=== PATIENT | male | born 1945 ===

== ENCOUNTER 2018-06-25 08:15 | Inpatient (IN) | payer MEDICARE, MEDICAID ==
[2018-06-25] VITALS (11 sets, daily range): BP systolic 95–117; BP diastolic 48–72
[~2018-06-25] VITALS: Ht 172.7 cm; Wt 81.6 kg
[~2018-06-25 08:15] MED LIST: ceFAZolin 1gm IVPB IVPB ONE; celeBREX 200mg Cap **SURGERY PATIENTS ONLY ORAL ONE; oxyCONTIN 20mg tab ORAL ONE
[2018-06-25] MEDS ORDERED: celeBREX 200mg Cap **SURGERY PATIENTS ONLY ORAL ONE (16:15)
[2018-06-25] MEDS ORDERED: oxyCONTIN 20mg tab ORAL ONE (16:15)
--- NOTE | 2018-06-25 16:31 | Pre-Procedure Note/Attestation ---
Pre-Procedure Note/Attestation Complete Prior to Procedure Planned Procedure: left Procedure Narrative: tka Indications for Procedure Pre-Operative Diagnosis: left knee arthritis Attestation I attest that I discussed the nature of the procedure; its benefits; risks and complications; and alternatives (and the risks and benefits of such alternatives ), prior to the procedure, with the patient (or the patient's legal customer retention representative). I attest that, if there was a reasonable possibility of needing a blood transfusion, the patient (or the patient's legal customer retention representative) was given the [facility] standardized written summary, pursuant to the [place] Reform Blood Safety Act ([place] Health and Safety Code # 1645, as amended). I attest that I re-evaluated the patient just prior to the surgery and that there has been no change in the patient's H&P, except as documented below: Prosper Owusu MD Jun 25, 2018 16:31
--- NOTE | 2018-06-25 16:32 | Operative Note - PDOC ---
Operative Note Operative Note Pre-op Diagnosis: left knee arthritis Procedure: see op report Post-op Diagnosis: same as pre-op plus Operative Findings: consistent w/pre-op dx studies Anesthesia: regional Specimen: none Complications: none Condition: stable Estimated Blood Loss: none Implant(s) used?: Yes Prosper Owusu MD Jun 25, 2018 16:32
[2018-06-25] MEDS ORDERED: EPINEPHrine 1mg/1ml Amp ONE ×2 (16:44→18:39)
[2018-06-25] MEDS ORDERED: Morphine Sulfate PF 10 ML ONE (16:44)
[2018-06-25] MEDS ORDERED: Kenalog-10 5ml Inj ONE (16:45)
[2018-06-25] MEDS ORDERED: Bupivacaine 0.25% Inj 30ml INJ ONE (16:45)
[2018-06-25] MEDS ORDERED: Ketorolac 30mg Inj ONE (16:45)
[2018-06-25] MEDS ORDERED: NeoSporin Gu Irrig 1ml Amp IRRIG ONE (16:45)
[2018-06-25] MEDS ORDERED: oxyCODONE 5mg IR tab ORAL PRN (16:45)
[2018-06-25] MEDS ORDERED: Bacitracin 50000 Units Vial ONE (16:45)
[2018-06-25] MEDS ORDERED: Morphine Sulfate 2mg/ml Inj(IV/IM USE ONLY) IVP PRN (16:45)
[2018-06-25] MEDS ORDERED: Milk of Magnesia 30ml Ud ORAL PRN (16:45)
[2018-06-25] MEDS ORDERED: GABAPENTIN600 MG ORAL (16:52)
[2018-06-25] MEDS ORDERED: METOPROLOL SUCC25 MG ORAL (16:53)
[2018-06-25] MEDS ORDERED: amlodipine PO (16:54)
[2018-06-25] MEDS ORDERED: TRAMADOL HCL50 MG ORAL (16:54)
[2018-06-25] MEDS ORDERED: TYLENOL EXTRA500 MG ORAL (16:55)
[2018-06-25] MEDS ORDERED: Sterile Water Irrig 1000ml IRRIG ONE (18:00)
[2018-06-25] MEDS ORDERED: NS Irrig 1000ml ONE (18:00)
[2018-06-25] MEDS ORDERED: NS Irrig 2000ml IRRIG ONE (18:00)
[2018-06-25] MEDS ORDERED: LR 1000ml ONE (18:00)
[2018-06-25] MEDS ORDERED: Tranexamic Acid 1,000 MG in NS 55 ML IV ONE ×2 (18:15→19:00)
[2018-06-25] MEDS ORDERED: Bupivacaine 0.5% Inj 30 ml vial INJ ONE (18:31)
[2018-06-25] MEDS ORDERED: cloNIDine 1000mcg/10ml inj ONE (18:31)
[2018-06-25] MEDS ORDERED: Lidocaine 1% MPF 10mg/ml 5ml ONE (18:39)
[2018-06-25] MEDS ORDERED: Propofol 200mg/20ml IV ONE (18:39)
[2018-06-25] MEDS ORDERED: Sodium Chloride 10ml vial INJ ONE (18:39)
[2018-06-25] MEDS ORDERED: Dexamethasone 4mg/ml vial ONE (18:39)
[2018-06-25] MEDS ORDERED: Duramorph PF 10mg/10ml amp EPIDUR ONE (18:51)
[2018-06-25] MEDS ORDERED: LR 1000ml 1,000 ML IVLG SCH (19:20)
--- NOTE | 2018-06-25 19:27 | Anethesia Preoperative Eval ---
Anesthesia Pre-op PMH/ROS General Date of Evaluation: Jun 25, 2018 Anesthesiologist: Giuseppe ASA Score: ASA 3 Mallampati Score Class I : Soft palate, uvula, fauces, pillars visible Class II: Soft palate, uvula, fauces visible Class III: Soft palate, base of uvula visible Class IV: Only hard plate visible Mallampati Classification: Class II Surgeon: Umer Anesthesia History: none Family History: no anesthesia problems Allergies: Coded Allergies: No Known Allergies (Unverified , 06/24/18) Medications: see eMAR Patient NPO?: Yes NPO Date: Jun 25, 2018 NPO Time: 0600 Past Medical History Cardiovascular: Reports: HTN Neurologic/Psychiatric: Reports: CVA PSxH Narrative: R THR Anesthesia Pre-op Phys. Exam Physician Exam Last Vital Signs Date Time Temp Pulse Resp B/P (MAP) Pulse Ox O2 Delivery O2 Flow Rate FiO2 06/25/18 17:11 Room Air 06/25/18 17:06 97.2 53 18 112/72 (85) 97 Constitutional: NAD Neurologic: CN 2-12 intact Cardiovascular: RRR Respiratory: CTA Gastrointestinal: S/NT/ND Airway Exam Mallampati Score: Class II MO: full ROM: full Teeth: missing, intact Anesthesia Pre-op A/P Risk Assessment & Plan Assessment: ASA 3 Plan: Spinal, SED Status Change Before Surgery: No Pre-Antibiotics Dru Grams Ancef IV Given Within 1 Hr of Incision: Yes - 1855 Time Given: 18:56 Shawn Chin MD Jun 25, 2018 19:27
--- NOTE | 2018-06-25 19:28 | Immediate Post-Op Evaluation ---
Immediate Post-Op Evalulation Immediate Post-Op Evalulation Procedure: L Total Hip Arthroplasty Date of Evaluation: Jun 25, 2018 Time of Evaluation: 20:58 IV Fluids: 1400 LR Blood Products: 0 Estimated Blood Loss: 52 Urinary Output: 0 Blood Pressure Systolic: 117 Blood Pressure Diastolic: 61 Pulse Rate: 67 Respiratory Rate: 16 O2 Sat by Pulse Oximetry: 100 Temperature (Fahrenheit): 98 Pain Score (1-10): 2 Nausea: No Vomiting: No Complications 0 Patient Status: awake, reacts, patent, none Hydration Status: adequate Dru Grams Ancef IV Given Within 1 Hr of Incision: Yes Time Given: 18:56 Shawn Chin MD Jun 25, 2018 19:28
[2018-06-25] MEDS ORDERED: Metoclopramide 10mg/2ml Inj IVP PRN (19:30)
[2018-06-25] MEDS ORDERED: HYDROcodone/Acetamin 5/325 tab ORAL PRN (19:30)
[2018-06-25] MEDS ORDERED: Atropine Sulfate 0.4mg/ml inj IVP PRN (19:30)
[2018-06-25] MEDS ORDERED: oxyCODONE HCL/Acetaminophen 5/325mg ORAL PRN (19:30)
[2018-06-25] MEDS ORDERED: DiphenhydrAMINE 50mg/ml Inj IVP PRN (19:30)
[2018-06-25] MEDS ORDERED: LORazepam Inj 2mg/ml 1ml IV PRN (19:30)
[2018-06-25] MEDS ORDERED: fentaNYL 100 mcg/2 mL IV PRN (19:30)
[2018-06-25] MEDS ORDERED: Meperidine 50mg/ml Inj(FOR RIGORS ONLY) IVP PRN (19:30)
[2018-06-25] MEDS ORDERED: Hydromorphone 0.5mg/0.5ml inj IVP PRN (19:30)
[2018-06-25] MEDS ORDERED: HYDROcodone/Acetamin 7.5/325 tab ORAL PRN (19:30)
[2018-06-25] MEDS ORDERED: Midazolam 2mg/2ml Inj IVP PRN (19:30)
[2018-06-25] MEDS ORDERED: Labetalol 5mg/ml 20ml vial IV PRN (19:30)
--- NOTE | 2018-06-25 22:10 | NUR ---
NURSE NOTES: Patient received from PACU, drowsy, arousable. On o2 via NC, no acute cardiorespiratory distress noted at this time. Chang catheter draining via gravity, secured to thigh. L knee dressing intact. IV intact and patent. Call light within reach. Oriented to new room and unit. Denies pain at this time. Will continue plan of care.
[2018-06-25] MEDS ORDERED: NORCO 10-325 T1 EACH ORAL (22:22)
[2018-06-25] MEDS ORDERED: VIAGRA50 MG ORAL (22:32)
[2018-06-25] MEDS ORDERED: MELOXICAM7.5 MG PO (22:32)
[2018-06-25] MEDS ORDERED: VITAMIN D250000 UNI1 ORAL (22:32)
[2018-06-25] MEDS ORDERED: GABAPENTIN300 MG ORAL (22:33)
[2018-06-25] MEDS: D5 1/2NS w/KCl 20mEq 1,000 ML IV SCH (22:59)
--- NOTE | 2018-06-26 00:05 | NUR ---
NURSE NOTES: Patient tolerating PO liquid diet at this time. Also tolerating crackers. No N/V
--- NOTE | 2018-06-26 02:45 | Operative Note - Dictated ---
DATE OF OPERATION: 06/25/2018 PREOPERATIVE DIAGNOSIS: Left knee osteoarthritis. POSTOPERATIVE DIAGNOSIS: Left knee osteoarthritis. PROCEDURE: Left total knee arthroplasty. SURGEON: Prosper Owusu M.D. ANESTHESIA: Spinal general. INDICATION FOR PROCEDURE: The patient is a pleasant gentleman who has had progressive left knee and end-stage osteoarthritis, had difficulty ambulating and elected to undergo left total knee arthroplasty. The risks, limitations, expectations, and complications of the procedure were discussed in detail. All questions addressed. DESCRIPTION OF PROCEDURE: After informed consent was obtained, the patient was brought to the operating room and placed under spinal general anesthesia. Left leg was prepped and draped in a sterile manner. Time-out was performed. Ancef was administered. Tranexamic acid was administered. A standard anterior subvastus arthrotomy was performed. Distal femur was well visualized. Distal femoral cutting block was placed. Distal femur was resected. Posterior anterior sizing guide was placed and measured between 4 or 5 and 5 was selected. Size 4 in 1 size 5 cutting block was placed. The anterior and posterior chamfer cuts were then made. There was slight hypoplastic femoral condyle. Therefore, care was taken to rotate the component. The proximal tibia was well visualized. There is significant posterior lateral bone loss. A tibial resection was then made. A size 4 tibial insert with a 11 mm insert was selected and placed. Knee came out to full extension, good stability with full extension, 10 degrees of flexion, 90 degrees of flexion. Good tracking of the patella. The patella was everted. A 31 mm patellar component was selected and placed. We calibrated 24 mm. At this point, a cement was prepared. Implants were impacted into place. Excess cement was removed. Arthrotomy site was closed with #1 Vicryl suture, 2-0 Vicryl suture, and 3-0 Monocryl suture and Dermabond. The patient was awoken and taken to the recovery room with stable vital signs. ESTIMATED BLOOD LOSS: Minimal. COMPLICATIONS: None. SPECIMENS: None. IMPLANTS: Include size 5 femoral component, size 4 tibial base plate, size 11 mm tibial insert, and 31 mm patellar component. Prosepr Owusu M.D. DR: BERNADETTE JOB#: [id number] CC:
[2018-06-26 03:16] VITALS: BP 130/65
[2018-06-26] MEDS: ceFAZolin 2gm/50ml Premix 50 ML IV SCH ×2 (03:22→11:42)
[2018-06-26] MEDS: Morphine Sulfate 4mg/ml Inj (IV USE ONLY) IVP PRN ×2 (03:29→11:57)
--- NOTE | 2018-06-26 06:06 | NUR ---
NURSE NOTES: Patient pain not improved after morphine and roxicodone. Patient stated he can tolerate it because he does not want to be delirious from overmedication. Ice pack replaced on patient's knee for comfort. Patient also experiencing itching on his left knee. Dr. Clements made aware, received order for claritin.
--- NOTE | 2018-06-26 07:52 | NUR ---
HAND-OFF: Report given to Joellen STANTON.
--- NOTE | 2018-06-26 07:55 | NUR ---
NURSE NOTES: Report received from outgoing nurse, rounds made. Patient resting in semi-fowlers position in bed. Patient alert, oriented x4, calm. No SOB on RA. Pain 7/10, will medicate as ordered. Denies NV. Encouraged PO intake. IVF infusing to right hand as ordered. FC draining y/cl urine to gravity. Neuro checks done, CMS+, mild numbness to base of feet, skin warm, wiggles, capillary refill <3 seconds, pedal pulses palpable, hand grasps/pedal pushes equal and strong. Left knee dressing (sourav wrap) in place, CDI. Right SCD on. Encouraged CDB and ankle rotations. Bed in lowest position, call light in reach, will continue to monitor.
[2018-06-26 08:00] VITALS: BP 117/62
[2018-06-26 08:47] LABS: HEMATOCRIT 44.4 % (42.0-52.0); HEMOGLOBIN 14.7 G/DL (14.2-18.0); MEAN CORPUSCULAR VOLUME 87 FL (80-99); PLATELET COUNT 311 K/UL (150-450); RED BLOOD COUNT 5.07 M/UL (4.70-6.10); RED CELL DISTRIBUTION WIDTH 12.4 % (11.6-14.8); WHITE BLOOD COUNT 18.5 K/UL (4.8-10.8)
[2018-06-26] MEDS: oxyCONTIN 20mg tab ORAL SCH ×2 (09:13→20:59)
[2018-06-26] MEDS: Docusate 100mg cap ORAL SCH ×3 (09:13→17:44)
[2018-06-26] MEDS: Acetaminophen 500mg (ES) tab ORAL SCH ×3 (09:15→17:45)
[2018-06-26] MEDS: Metoprolol Succinate XL 25mg tab ORAL SCH (09:15)
[2018-06-26] MEDS: celeBREX 200mg Cap **SURGERY PATIENTS ONLY ORAL SCH (09:20)
[2018-06-26] MEDS: D5 1/2NS w/KCl 20mEq 1,000 ML IV SCH (11:44)
--- NOTE | 2018-06-26 11:47 | Consultation ---
History of Present Illness Present Illness Allergies: Coded Allergies: No Known Allergies (Unverified , 06/24/18) Medication History Scheduled Ergocalciferol (Vitamin D2)* (Vitamin D*), 50,000 UNIT ORAL ONCE A WEEK, ( Reported) Gabapentin* (Gabapentin*), 300 MG ORAL THREE TIMES A DAY, (Reported) Meloxicam* (Meloxicam*), Unknown Dose PO DAILY, (Reported) Metoprolol Succinate* (Metoprolol Succinate*), 25 MG ORAL DAILY, (Reported) Sildenafil Citrate (Viagra), 50 MG ORAL DAILY, (Reported) [amlodipine], 1 TAB-CAP PO DAILY, (Reported) Scheduled PRN Acetaminophen* (Tylenol Extra Strength*), 500 MG ORAL Q6H PRN for Mild Pain/ Temp > 100.5, (Reported) Hydrocodone Bit/Acetaminophen 10-325* ([place] 10-325*), 1 TAB ORAL Q6H PRN for For Pain, (Reported) Tramadol Hcl* (Ultram*), 50 MG ORAL Q6H PRN for For Pain, (Reported) Discontinued Medications Gabapentin* (Gabapentin*), 600 MG ORAL THREE TIMES A DAY, (Reported) Discontinued Reason: Medication dose changed Patient History Healthcare decision maker N Resuscitation status Full Code Advanced Directive on File No Physical Exam Last 24 Hour Vital Signs Date Time Temp Pulse Resp B/P (MAP) Pulse Ox O2 Delivery O2 Flow Rate FiO2 06/26/18 11:22 73 18 Room Air 21 06/26/18 09:15 77 117/62 06/26/18 09:15 77 117/62 06/26/18 08:00 98.2 77 19 117/62 (80) 97 06/26/18 03:59 97.2 06/26/18 03:16 97.2 87 17 130/65 (86) 97 06/25/18 23:52 97.5 59 17 102/60 (74) 99 06/25/18 23:04 97.5 60 17 108/55 (72) 98 06/25/18 22:35 Nasal Cannula 2.0 06/25/18 22:10 97.2 61 17 105/61 (76) 98 06/25/18 21:39 98.4 63 15 102/52 98 Nasal Cannula 3 06/25/18 21:30 60 16 106/48 98 Nasal Cannula 3 06/25/18 21:15 61 17 106/54 98 Nasal Cannula 3 06/25/18 21:05 60 18 112/58 95 Nasal Cannula 3 06/25/18 20:57 65 24 115/62 95 Simple Mask 6 06/25/18 20:52 66 22 95/52 95 Simple Mask 6 06/25/18 20:47 98.0 70 14 117/61 98 Simple Mask 6 06/25/18 20:44 67 16 100 06/25/18 17:11 Room Air 06/25/18 17:06 97.2 53 18 112/72 (85) 97 Intake and Output 06/25/18 06/26/18 19:00 07:00 Intake Total 0 ml 3480 ml Output Total 950 ml Balance 0 ml 2530 ml Intake Oral 0 ml 950 ml IV Total 2530 ml Output Urine Total 930 ml Estimated Blood Loss 20 ml # Voids 1 Laboratory Tests Test 06/26/18 08:18 White Blood Count 18.5 K/UL (4.8-10.8) H Red Blood Count 5.07 M/UL (4.70-6.10) Hemoglobin 14.7 G/DL (14.2-18.0) Hematocrit 44.4 % (42.0-52.0) Mean Corpuscular Volume 87 FL (80-99) Mean Corpuscular Hemoglobin 29.0 PG (27.0-31.0) Mean Corpuscular Hemoglobin Concent 33.1 G/DL (32.0-36.0) Red Cell Distribution Width 12.4 % (11.6-14.8) Platelet Count 311 K/UL (150-450) Mean Platelet Volume 5.9 FL (6.5-10.1) L Neutrophils (%) (Auto) % (45.0-75.0) Lymphocytes (%) (Auto) % (20.0-45.0) Monocytes (%) (Auto) % (1.0-10.0) Eosinophils (%) (Auto) % (0.0-3.0) Basophils (%) (Auto) % (0.0-2.0) Differential Total Cells Counted 100 Neutrophils % (Manual) 96 % (45-75) H Lymphocytes % (Manual) 2 % (20-45) L Monocytes % (Manual) 2 % (1-10) Eosinophils % (Manual) 0 % (0-3) Basophils % (Manual) 0 % (0-2) Band Neutrophils 0 % (0-8) Platelet Estimate Adequate Platelet Morphology Normal Red Blood Cell Morphology Normal Height (Feet): 5 Height (Inches): 8.00 Weight (Pounds): 180 Medications Current Medications Medications (Trade) Dose Ordered Sig/Walter Route PRN Reason Start Time Stop Time Status Last Admin Dose Admin Acetaminophen (Tylenol) 1,000 mg THREE TIMES A DAY ORAL 06/26/18 09:00 07/26/18 08:59 06/26/18 09:15 Amlodipine Besylate (Norvasc) 2.5 mg DAILY ORAL 06/26/18 09:00 07/26/18 08:59 06/26/18 09:15 Celecoxib (CeleBREX) 200 mg DAILY ORAL 06/26/18 09:00 07/26/18 08:59 06/26/18 09:20 Dextrose/ Electrolytes 1,000 ml @ 75 mls/hr [id number] IV 06/25/18 23:00 07/25/18 22:59 06/26/18 11:44 Docusate Sodium (Colace) 100 mg THREE TIMES A DAY ORAL 06/26/18 09:00 07/26/18 08:59 06/26/18 09:13 Ferrous Sulfate (Feosol) 325 mg THREE TIMES A DAY ORAL 06/26/18 09:00 07/26/18 08:59 06/26/18 09:15 Gabapentin (Neurontin) 300 mg THREE TIMES A DAY ORAL 06/26/18 09:00 07/26/18 08:59 06/26/18 09:11 Loratadine (Claritin 10mg) 10 mg DAILY PRN ORAL Itching 06/26/18 06:15 07/26/18 06:14 06/26/18 06:15 Magnesium Hydroxide (Mom) 30 ml DAILYPRN PRN ORAL Constipation 06/25/18 16:45 07/25/18 16:44 Metoprolol Succinate (Toprol XL) 25 mg DAILY ORAL 06/26/18 09:00 07/26/18 08:59 06/26/18 09:15 Morphine Sulfate (Morphine Sulfate) 1 mg Q4H PRN IVP Mild Pain (Pain Scale 1-3) 06/25/18 16:45 07/02/18 16:44 Morphine Sulfate (Morphine Sulfate) 2 mg Q4H PRN IVP Moderate Pain (Pain Scale 4-6) 06/25/18 16:45 07/02/18 16:44 Morphine Sulfate (Morphine Sulfate) 4 mg Q4H PRN IVP Severe Pain (Pain Scale 7-10) 06/25/18 16:45 07/02/18 16:44 06/26/18 03:29 Ondansetron HCl (Zofran) 4 mg Q6H PRN IVP Nausea & Vomiting 06/25/18 16:45 07/25/18 16:44 Oxycodone HCl (OxyCONTIN) 20 mg EVERY 12 HOURS ORAL 06/26/18 09:00 07/03/18 08:59 06/26/18 09:13 Oxycodone HCl (Roxicodone) 5 mg Q1H PRN ORAL Breakthrough Pain 06/25/18 16:45 07/02/18 16:44 06/26/18 04:37 Temazepam (Restoril) 7.5 mg HSPRN PRN ORAL Insomnia 06/25/18 16:45 07/02/18 16:44 Assessment/Plan Status Narrative h and p dictated s/p tkr pt ot dvt prophyalxis monitor cbc stress leukocytosis Lane Clements MD Jun 26, 2018 11:47
[2018-06-26 12:00] VITALS: BP 123/59
--- NOTE | 2018-06-26 13:16 | NUR ---
CASE MANAGEMENT: REVIEW 72/M DIRECT ADMIT FROM HOME CC: LEFT KNEE ARTHRITIS SI: LEFT KNEE OSTEOARTHRITIS LEFT TOTAL KNEE ARTHROPLASTY 06/25 T 97.2 HR 53 RR 18 BP 112/72 SAT 97% ROOM AIR IS: CELEBREX PO QD OXYCONTIN PO X1 CEFAZOLIN IV X1 EPINEPHRINE X1 NEOSPORIN X1 PATIENT ADMITTED TO MED/SURG UNIT 06/25/2018 DCP: PATIENT IS FROM HOME
--- NOTE | 2018-06-26 13:45 | NUR ---
NURSE NOTES: Dr. Owusu discussed discharge plans with patient/RN. Discharge with home health and DME (shower chair, walker, toilet seat). Smita Enrique CM notified of above. See order.
--- NOTE | 2018-06-26 15:46 | NUR ---
CASE MANAGEMENT: DCPNOTE PER MD ORDER HH AND DME ORDERED UPON DISCHARGE DOCTOR'S CHOICE ROBINA [phone] S/P KELLY [phone] WILL PROVIDE HH AND DELIVER DME (FWW, SHOWER CHAIR, RAISED TOILET SEAT)
[2018-06-26 16:00] VITALS: BP 126/67
--- NOTE | 2018-06-26 17:00 | NUR ---
PT Note PT fredy completed, tx initiated. Patient is cooperative and was able to ambulate with the FWW. Pt needs PT services to increase his ROM and muscle strength to improve his functional mobility and gait. Addendum: 06/26/18 at 1700 by MARIA ESTHER RAINES PT Amended: Links added.
--- NOTE | 2018-06-26 19:45 | NUR ---
HAND-OFF: Report given to Celeste STANTON.
[2018-06-26 20:00] VITALS: BP 132/85
--- NOTE | 2018-06-26 20:30 | NUR ---
NURSE NOTES: PATIENT IN BED, AWAKE, ALERT, VERBALLY RESPONSIVE. NO COMPLAINTS OF PAIN AT THIS TIME. NO S/S RESPIRATORY DISTRESS NOTED. IV IN PLACE. DRESSING IN LEFT KNEE DRY AND INTACT. BED IN LOWEST POSITION, CALL LIGHT WITHIN REACH, BED ALARM ON. WILL CONTINUE TO MONITOR.
--- NOTE | 2018-06-26 21:00 | History and Physical Report ---
DATE OF ADMISSION: 06/25/2018 NOTE: "POOR AUDIO QUALITY" REASON FOR EVALUATION: I was asked to evaluate this patient by Dr. Prosper Owusu. HISTORY OF PRESENT ILLNESS: This is a 72-year-old male with history of arthritis of the knee. He is status post total knee arthroplasty. Denies any chest pain, chest tightness, paroxysmal nocturnal dyspnea, or orthopnea. Denies any cough, hemoptysis, or hematemesis. PAST MEDICAL HISTORY: Includes: 1. Hypertension. 2. Osteoarthritis. 3. Hip arthritis. 4. History of gastritis. 5. History of unknown significance. MEDICATIONS: Prior to admission include: 1. Meloxicam. 2. Gabapentin 300. 3. Metoprolol. 4. Amlodipine. 5. Tramadol. 6. Viagra. FAMILY HISTORY: Noncontributory. SOCIAL HISTORY: Does not abuse drugs. PHYSICAL EXAMINATION: VITAL SIGNS: Reviewed. Pulse 73, respiratory rate 18. Last blood pressure we have on him is 117/62. GENERAL: A well-developed, well-nourished male in no acute distress. HEENT: Normocephalic and atraumatic. Extraocular muscles intact. Anicteric sclerae. NECK: No JVD. No carotid bruit. HEART: S1, S2. LUNGS: Clear. ABDOMEN: Soft. EXTREMITIES: No clubbing or cyanosis. The knee has a bandage on it. LABORATORY DATA: WBC noted to be 18.5, hematocrit is 44.4, and platelet is 311,000. IMPRESSION: This is an unfortunate male with history of arthritis, status post total knee arthroplasty. Perioperatively, minimum blood loss. History of hypertension. Postoperatively, stress leukocytosis. PLAN: The following is recommended. 1. I agree with current antibiotic perioperative prophylaxis. 2. Postoperatively, DVT prophylaxis. 3. Physical therapy. 4. Occupational therapy evaluation. 5. CPM. 6. Monitor CBC. The patient is doing well. We will follow with you during the course of hospitalization. Nereyda Rivas JOB#: [id number] CC: Prosper Owusu M.D.; Fax#: [phone] [facility]
[2018-06-27] VITALS (7 sets, daily range): BP systolic 102–142; BP diastolic 59–69
[2018-06-27] MEDS: D5 1/2NS w/KCl 20mEq 1,000 ML IV SCH ×2 (01:26→15:00)
--- NOTE | 2018-06-27 04:00 | NUR ---
NURSE NOTES: PATIENT IN BED, NO DISTRESS, V/S STABLE.
[2018-06-27 05:16] LABS: BASOPHILS % (AUTO) 0.5 % (0.0-2.0); HEMATOCRIT 44.3 % (42.0-52.0); HEMOGLOBIN 14.3 G/DL (14.2-18.0); LYMPHOCYTES % (AUTO) 6.2 % (20.0-45.0); MEAN CORPUSCULAR VOLUME 88 FL (80-99); MONOCYTES % (AUTO) 8.6 % (1.0-10.0); NEUTROPHILS % (AUTO) 84.7 % (45.0-75.0); PLATELET COUNT 288 K/UL (150-450); RED BLOOD COUNT 5.03 M/UL (4.70-6.10); RED CELL DISTRIBUTION WIDTH 12.7 % (11.6-14.8); WHITE BLOOD COUNT 16.9 K/UL (4.8-10.8)
--- NOTE | 2018-06-27 07:15 | NUR ---
NURSE NOTES: Report received from outgoing nurse, rounds made. Patient sitting in high fowlers position in bed. Patient alert, oriented x4, calm. Left knee dressing remains CDI, with sourav wrap. Patient refused ice pack at this time. Pain 5/10. Right hand IV infusing as ordered, site asymptomatic. No SOB on RA, no NV tolerating regular diet, encourage PO intake. Voiding y/cl urine, noted in urinal. Encouraged IS use. Call light in reach, bed in lowest position, will continue to monitor.
--- NOTE | 2018-06-27 07:30 | NUR ---
HAND-OFF: Report given to TASHA Mcintosh RN.
[2018-06-27] MEDS: Morphine Sulfate 2mg/ml Inj(IV/IM USE ONLY) IVP PRN (08:24)
[2018-06-27] MEDS: Acetaminophen 500mg (ES) tab ORAL SCH ×3 (08:42→17:37)
[2018-06-27] MEDS: oxyCONTIN 20mg tab ORAL SCH ×2 (08:44→21:43)
[2018-06-27] MEDS: celeBREX 200mg Cap **SURGERY PATIENTS ONLY ORAL SCH (08:44)
[2018-06-27] MEDS: Metoprolol Succinate XL 25mg tab ORAL SCH (08:45)
[2018-06-27] MEDS: Docusate 100mg cap ORAL SCH ×3 (08:45→17:36)
--- NOTE | 2018-06-27 13:00 | NUR ---
NURSE NOTES: Left knee dressing changed as ordered. Applied dry sterile dressing (4x4) secured with tegederm. Mild swelling noted to left knee, no bruising/redness/drainage. Assisted transfer to BSC. Reinforced proper body mechanics and alignment of left knee with movement. Patient verbalized understanding. CMS+, skin warm, pulses palapable, wiggles, no NT, capillary refill <3 seconds. Encouraged IS and ankle rotations. Noted right side slightly weaker with hand grasps and right foot deviation. RLE SCD on. Refused Colace. Instructed patient on medications and SE, encouraged Colace and PO diet/hydration. Voiding well per urinal y/cl. No NV. IVF discontinued this AM. VSS. Will continue to monitor.
--- NOTE | 2018-06-27 13:00 | 48 Hour Post Anesthesia Eval ---
Post Anesthesia Evaluation Procedure: L Total Hip Arthroplasty Date of Evaluation: Jun 27, 2018 Time of Evaluation: 12:59 Blood Pressure Systolic: 125 0: 75 Pulse Rate: 70 Respiratory Rate: 14 O2 Sat by Pulse Oximetry: 95 Airway: patent Nausea: No Vomiting: No Pain Intensity: 5 Hydration Status: adequate Cardiopulmonary Status: stable Mental Status/LOC: patient returned to baseline Follow-up Care/Observations: na Post-Anesthesia Complications: none Follow-up care needed: N/A Rena Brizuela CRNA Jun 27, 2018 13:00
--- NOTE | 2018-06-27 19:30 | NUR ---
NURSE NOTES: Report received, rounds made. Patient sleeping with HOB elevated in bed. Patient appears calm. Left knee dressing remains CDI, with sourav wrap. Right hand IV infusing as ordered, site asymptomatic. No SOB on RA, no NV tolerating regular diet, encourage PO intake. Voiding y/cl urine, noted in urinal. Encouraged IS use 10x while awake per hour. Call light in reach, bed in lowest position, locked. will continue to monitor.
--- NOTE | 2018-06-27 19:30 | NUR ---
HAND-OFF: Report given to Stacey Blackman RN.
--- NOTE | 2018-06-27 21:22 | General Progress Note ---
Assessment/Plan Status Narrative s/p tkr perioperative bloo dloss stress leukocytosis Assessment/Plan pt ot cpm paioncontrol dvt prophylaxis. Subjective Date patient seen: Jun 27, 2018 Time patient seen: 21:21 Allergies: Coded Allergies: No Known Allergies (Unverified , 06/24/18) Subjective has pain but better no fevernochills Objective Last 24 Hour Vital Signs Date Time Temp Pulse Resp B/P (MAP) Pulse Ox O2 Delivery O2 Flow Rate FiO2 06/27/18 16:00 97.9 103 18 127/69 (88) 99 06/27/18 13:00 70 14 95 06/27/18 12:00 97.9 79 19 102/59 (73) 98 06/27/18 09:00 Room Air 06/27/18 08:54 98.6 06/27/18 08:54 98.6 06/27/18 08:45 71 125/61 06/27/18 08:43 71 125/61 06/27/18 08:00 98.6 71 19 125/61 (82) 97 06/27/18 04:58 97.6 62 19 127/64 (85) 96 06/27/18 00:42 98.1 68 19 109/62 (78) 94 Intake and Output 06/26/18 06/27/18 18:59 06:59 Intake Total 1305 ml 1185 ml Output Total 200 ml 1300 ml Balance 1105 ml -115 ml Intake Oral 480 ml 360 ml IV Total 825 ml 825 ml Output Urine Total 200 ml 1300 ml # Voids 1 Laboratory Tests 06/27/18 04:55: White Blood Count 16.9H, Red Blood Count 5.03, Hemoglobin 14.3, Hematocrit 44.3 , Mean Corpuscular Volume 88, Mean Corpuscular Hemoglobin 28.5, Mean Corpuscular Hemoglobin Concent 32.3, Red Cell Distribution Width 12.7, Platelet Count 288, Mean Platelet Volume 6.3L, Neutrophils (%) (Auto) 84.7H, Lymphocytes (%) (Auto) 6.2L, Monocytes (%) (Auto) 8.6, Eosinophils (%) (Auto) 0.0, Basophils (%) (Auto) 0.5 Height (Feet): 5 Height (Inches): 8.00 Weight (Pounds): 180 General Appearance: WD/WN Neck: non-tender Cardiovascular: normal rate, regular rhythm, no JVD Respiratory/Chest: lungs clear Abdomen: non tender, soft Extremities: other - no clubbing Lane Clements MD Jun 27, 2018 21:22
[2018-06-28] VITALS: BP 132/71
[2018-06-28 04:00] VITALS: BP 132/66
[2018-06-28 06:35] LABS: EOSINOPHILS % (AUTO) 0.2 % (0.0-3.0); HEMATOCRIT 43.7 % (42.0-52.0); HEMOGLOBIN 14.4 G/DL (14.2-18.0); MEAN CORPUSCULAR VOLUME 87 FL (80-99); MONOCYTES % (AUTO) 9.7 % (1.0-10.0); NEUTROPHILS % (AUTO) 80.2 % (45.0-75.0); PLATELET COUNT 268 K/UL (150-450); RED BLOOD COUNT 5.02 M/UL (4.70-6.10); RED CELL DISTRIBUTION WIDTH 12.8 % (11.6-14.8)
--- NOTE | 2018-06-28 07:38 | NUR ---
HAND-OFF: Report given to Bethany STANTON.
--- NOTE | 2018-06-28 07:44 | NUR ---
NURSE NOTES: Pt requested how to raise bed. Informed of importance of lowering bed to facilitate exiting bed, and waiting for assistance. Verbalized understanding about safety. Call light is in reach. urinal emptied approximately. 450 cc yellow urine. No sediment or odor
--- NOTE | 2018-06-28 07:57 | NUR ---
CASE MANAGEMENT:REVIEW 06/28/18 SI: POD #3 LT TOTAL KNEE ARTHROPLASTY 98.0 72 18 132/66 93% ON RA WBC+15.0 IS: IV MORPHINE Q4HRS PRN OXYCONTIN PO Q12 CELEBREX PO QD NEURONTIN PO TID TOPROL XL PO QD NORVASC PO QD : MED/SURG STATUS 4 EAST
[2018-06-28 08:00] VITALS: BP 150/71
--- NOTE | 2018-06-28 08:01 | NUR ---
CASE MANAGEMENT: DCPNOTE PER MD ORDER HH AND DME ORDERED UPON DISCHARGE DOCTOR'S CHOICE ROBINA [phone] S/P KELLY [phone] WILL PROVIDE HH AND DELIVER DME (FWW, SHOWER CHAIR, RAISED TOILET SEAT) THE ABOVE NOTE WAS DOCUMENTED ON 06/26/18 BY MAINTENANCE DEPARTMENT TECHNICIAN WILNER
[2018-06-28] MEDS: Morphine Sulfate 2mg/ml Inj(IV/IM USE ONLY) IVP PRN (08:07)
[2018-06-28] MEDS: Docusate 100mg cap ORAL SCH ×3 (09:25→18:23)
[2018-06-28] MEDS: oxyCONTIN 20mg tab ORAL SCH ×2 (09:25→21:10)
[2018-06-28] MEDS: Acetaminophen 500mg (ES) tab ORAL SCH ×3 (09:27→18:25)
[2018-06-28] MEDS: Metoprolol Succinate XL 25mg tab ORAL SCH (09:28)
[2018-06-28] MEDS: celeBREX 200mg Cap **SURGERY PATIENTS ONLY ORAL SCH (09:29)
--- NOTE | 2018-06-28 10:55 | Diagnostic Imaging Report ---
Indications: Postoperative, status post left total knee replacement Technique: Two views of the left knee Comparison: None Findings: Two postoperative views of the left knee demonstrate total knee arthroplasty, good anatomic alignment of the prosthesis. There is postsurgical soft tissue air. Impression: Postoperative lower knee, no unusual features.
--- NOTE | 2018-06-28 11:18 | NUR ---
NURSE NOTES: Pt up with physical therapy . Has pending discharge for today. Able to verbalize known needs. Stable condition.
[2018-06-28 12:00] VITALS: BP 153/85
--- NOTE | 2018-06-28 12:10 | NUR ---
NURSE NOTES: Follow call made to [facility]. In [employer] Suspension Coordinator spoke to Lisa , who stated that walker and bedside commode will delivered. She also stated she is unable to give a concrete time of when physical therapy will begin. Initially a home evaluation is required, then therapy will be roughly 48 afterwards. Per Lisa start date July 01 at the latest. Pt made aware
[2018-06-28] MEDS ORDERED: PERCOCET 10-321 EAC1 PO (12:33)
[2018-06-28] MEDS ORDERED: NAPROXEN250 MG ORAL (12:34)
[2018-06-28] MEDS ORDERED: NEURONTIN100 MG ORAL (12:36)
[2018-06-28] MEDS ORDERED: ASPIRIN325 MG ORAL (12:39)
[2018-06-28 16:00] VITALS: BP 116/60
--- NOTE | 2018-06-28 16:00 | NUR ---
NURSE NOTES: pt is still here pt requested to speak to charge nurse earlier in shift in regards to reluctance to pick him up . Made aware of discharge orders and planning. stated he would call to pick him up. Up wit PT tolerated well. Stable Condition.
--- NOTE | 2018-06-28 18:00 | NUR ---
NURSE NOTES: Upon this writing pt remains here paper work completed earlier in shift . package to include education on knee pain , knee surgery , constipation risk 2 to pain medication use
--- NOTE | 2018-06-28 19:20 | NUR ---
NURSE NOTES: Charge Nurse aware that pt has not left facility
--- NOTE | 2018-06-28 19:45 | NUR ---
NURSE NOTES: Pt lying in bed w/bed in lowest position and call light within reach. Pt A&Ox4, VSS, and in no apparent distress at this time. IV site intact/asymptomatic & H/L'd and surgical dressing C/D/I. Pt states is supposed to pick him up tonight but doesn't know at what time exactly. Will continue to monitor.
--- NOTE | 2018-06-28 20:00 | NUR ---
HAND-OFF: Report given to Duarte STANTON.
[2018-06-28 20:50] VITALS: BP 136/67
[2018-06-29 00:34] VITALS: BP 132/70
[2018-06-29 04:00] VITALS: BP 130/72
--- NOTE | 2018-06-29 07:03 | NUR ---
HAND-OFF: Report given to ROMY Sims.
--- NOTE | 2018-06-29 07:30 | NUR ---
NURSE NOTES: Pt received awake complaining of constipation. Informed that outgoing nurse gave him MOM and that routine medications for this am will include stool softener. Pt is not talkative today. Remained here over night after pending discharge. : " My abandoned me she didn't even call" Pt encouraged . Current plan of care will be followed
[2018-06-29] MEDS: celeBREX 200mg Cap **SURGERY PATIENTS ONLY ORAL SCH (08:24)
[2018-06-29 08:25] VITALS: BP 127/79
[2018-06-29] MEDS: Docusate 100mg cap ORAL SCH (08:25)
[2018-06-29] MEDS: Metoprolol Succinate XL 25mg tab ORAL SCH (08:25)
[2018-06-29] MEDS: oxyCONTIN 20mg tab ORAL SCH (08:28)
[2018-06-29] MEDS: Acetaminophen 500mg (ES) tab ORAL SCH (09:00)
--- NOTE | 2018-06-29 11:00 | NUR ---
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 stated she was ready to take him home. : " Is everything ready, I want to take him now" Fiber Optics Technician informed pt that package has been completed. " I told him I was coming today, I was not ready for him to come home' Fiber Optics Technician informed pt that charge nurse spoke to pt in regards to discharge orders for yesterday. She replied " I am not going to be bothered with administration stuff , I just want to know is it ready; I told him him to stay and that is it and that is all; if I wasn't ready I wasn't ready. " preceded to assist Pt with grooming, charge nurse made aware. Documents given, written prescriptions given, iv removed, pt escorted to vehicle by staff in stable condition
--- NOTE | 2018-06-30 14:53 | Discharge Summary ---
Discharge Summary Hospital Course Date of Admission Jun 25, 2018 at 15:27 Date of Discharge Jun 29, 2018 at 10:40 Admitting Diagnosis Left knee osteoarthritis Reason for Hospitalization: Elective surgery HPI Holden Rojo is a 72 year old male who was admitted on Jun 25, 2018 at 15:27 for Left Knee Osteoarthritis. Patient was admitted for elective surgery Consultations Dr Clements IM Procedures s/p 06/25/[address] Owusu Left total knee arthroplasty. Hospital Course status post surgery course of recovery uneventful initially IV fluids s/p perioperative antibiotics neurovascular status closely monitored, stable incision with dressing clean , dry, and intact pain management was addressed ; pain was controlled hemodynamically stable ambulated with PT DVT prophylaxis provided use of incentive spirometry was encouraged while in the bed fall precautions maintained; safe for ambulation tolerated diet , IV fluids discontinued GI prophylaxis provided antiemetics were on board as needed blood pressure was managed with beta gerri and calcium channel gerri, and remained stable noted leukocytosis, no fevers. no evidence of infection, likely stress leukocytosis , monitor CBC upon discharge voided freely bowel regimen instituted patient was stable for discharge discharge instructions provided follow up with surgeon as outpatient as advised by noah FINAL DIAGNOSES Left knee osteoarthritis s/p Left total knee arthroplasty Stress leukocytosis Hypertension Discharge Medications Continued Medications: [amlodipine] () unk TAB 1 TAB-CAP PO DAILY Aspirin* (Aspirin*) 325 Mg Tablet 325 MG ORAL DAILY, #42 TAB (This prescription has been renewed) Ergocalciferol (Vitamin D2)* (Vitamin D*) 50,000 Unit Capsule 60711 UNIT ORAL ONCE A WEEK, CAP (This prescription has been renewed) Gabapentin* (Neurontin*) 100 Mg Capsule 100 MG ORAL THREE TIMES A DAY, #90 CAP 0 Refills (This prescription has been renewed) Metoprolol Succinate* (Metoprolol Succinate*) 25 Mg Tab.er.24h 25 MG ORAL DAILY, TAB (This prescription has been renewed) Naproxen* (Naprosyn*) 250 Mg Tablet 500 MG ORAL TWICE A DAY, #60 TAB 0 Refills (This prescription has been renewed) Oxycodone HCl/Acetaminophen (Percocet 10-325 mg Tablet) 1 Each Tablet 1 EACH PO Q6HR PRN for For Pain, #30 TAB (This prescription has been renewed) Sildenafil Citrate (Viagra) 50 Mg Tablet 50 MG ORAL DAILY, TAB 0 Refills (This prescription has been renewed) Discharge Condition Upon Discharge: stable Discharge Disposition Patient was discharged to Home with Home Health(06) Discharge Instructions Discharge Instructions Special Instructions I have been assigned to complete a D/C Summary on this account. I was not involved in the patient management Lelia Gordillo NP Jun 30, 2018 14:53
== END 2018-06-29 10:40 | disposition home health service (06) | DRG 470 ==
LOC: EDSTATUS 14:00 → SDSOVERFLO 15:27 → 3E 21:50
PROC: 0SRD0J9 Replacement of Left Knee Joint with Synthetic Substitute, Cemented, Open Approach (ICD-10-PCS; principal; 2018-06-25 17:45)
DX: M17.12 Unilateral primary osteoarthritis, left knee (principal); I10 Essential (primary) hypertension
CPT/HCPCS: 36415; 85007; 85025; 86850; 86900; 86901; 87081; 94003; 94150; 94664; J2405